=== PATIENT | female | born 2000 | race Asian ===

== ENCOUNTER 2021-04-11 12:33 | Observation (INO) | payer SELFPAY ==
[2021-04-11] VITALS (8 sets, daily range): BP systolic 86–110; BP diastolic 42–59
[~2021-04-11] VITALS: Ht 167.6 cm; Wt 68.2 kg
[2021-04-11 13:13] LABS: BASO # 0.1 x10^3/uL (0.0-0.2); BASO % 1 % (0-3); EOS # 0.2 x10^3/uL (0.0-0.7); EOS % 3 % (0-3); HEMATOCRIT 28.8 % (36.0-47.0); HEMOGLOBIN 9.4 g/dL (12.0-15.5); LYMPH # 1.4 x10^3/uL (1.0-4.8); LYMPH % 19 % (24-48); MEAN CORPUSCULAR HEMOGLOBIN 25 pg (25-35); MEAN CORPUSCULAR HGB CONC 33 g/dL (31-37); MEAN CORPUSCULAR VOLUME 76 fL (79-100); MONO # 0.4 x10^3/uL (0.0-1.1); MONO % 5 % (0-9); NEUT # 5.4 x10^3/uL (1.8-7.7); NEUT % 72 % (31-73); PLATELET COUNT 310 x10^3/uL (140-400); RED CELL DISTRIBUTION WIDTH 14.9 % (11.5-14.5); WHITE BLOOD COUNT 7.4 x10^3/uL (4.0-11.0)
[2021-04-11 13:26] LABS: CALCIUM 8.9 mg/dL (8.5-10.1); CREATININE 0.7 mg/dL (0.6-1.0); GFR 105.6; POTASSIUM 4.3 mmol/L (3.5-5.1)
[2021-04-11 13:32] LABS: ALBUMIN 2.5 g/dL (3.4-5.0); ALBUMIN/GLOBULIN RATIO 0.6 (1.0-1.7); TOTAL BILIRUBIN 0.2 mg/dL (0.2-1.0); TOTAL PROTEIN 6.7 g/dL (6.4-8.2)
--- NOTE | 2021-04-11 13:39 | PHYS DOC ---
Past Medical History Past Surgical History: No Surgical History Smoking Status: Never Smoker Alcohol Use: None General Adult EDM: Chief Complaint: VAGINAL BLEEDING HPI: HPI: Patient is a 20 year old female presents to the emergency department via EMS with chief complaint of miscarriage at home at noon today. Patient reports she is about 3 months with a last menstrual. On December 18, 2020. As had no care. Reports this is her third , has 2 children at home females 5 years and 3 years of age, denies any complications with previous pregnancies. Reports at approximately noon today she had a sudden onset of lower pelvic pain with a gush of fluids, states the baby came out, there was some bleeding that has stopped, patient states she called 911 for transport to the emergency department. Patient states the baby is still attached to the umbilical cord, patient states the baby is not moving. Patient denies any other physical complaints or physical concerns. Review of Systems: Review of Systems: 14 body systems of review of systems have been reviewed. See HPI for pertinent positives and negative responses, otherwise all other systems are negative, nonpertinent or noncontributory. Constitutional: Negative except as outlined in HPI above. Skin: Negative except as outlined in HPI above. Eyes: Negative except as outlined in HPI above. HENT: Negative except as outlined in HPI above. Respiratory: Negative except as outlined in HPI above. Cardiovascular: Negative except as outlined in HPI above. GI: Negative except as outlined in HPI above. : Negative except as outlined in HPI above. Musculoskeletal: Negative except as outlined in HPI above. Integument: Negative except as outlined in HPI above. Neurologic: Negative except as outlined in HPI above. Endocrine: Negative except as outlined in HPI above. Lymphatic: Negative except as outlined in HPI above. Psychiatric: Negative except as outlined in HPI above. Heart Score: C/O Chest Pain: No Risk Factors: Risk Factors: DM, Current or recent (<one month) smoker, HTN, HLP, family history of CAD, obesity. Risk Scores: Score 0 - 3: 2.5% MACE over next 6 weeks - Discharge Home Score 4 - 6: 20.3% MACE over next 6 weeks - Admit for Clinical Observation Score 7 - 10: 72.7% MACE over next 6 weeks - Early Invasive Strategies Allergies: Allergies: Allergies Coded Allergies Type Severity Reaction Last Updated Verified No Known Drug Allergies 04/11/21 No Physical Exam: PE: Constitutional: Well developed, well nourished, no acute distress, non-toxic appearance. 20-year-old female in no apparent distress. HENT: Normocephalic, atraumatic. Eyes: Conjunctiva normal, no discharge. Neck: Normal range of motion. Cardiovascular: Distal cap refill less than 2 seconds, no cyanosis appreciated. Lungs & Thorax: Patient is in no respiratory distress, no adventitious lung sounds appreciated. Abdomen: Bowel sounds normal, soft, no tenderness, no masses, no pulsatile masses. No bruising or skin discoloration of the abdomen. Skin: Warm, dry, no erythema, no rash. Back: No tenderness, no CVA tenderness. Extremities: No tenderness, no cyanosis, no clubbing, ROM intact, no edema. Neurologic: Alert and oriented X 3, normal motor function, normal sensory function, no focal deficits noted. Psychologic: Affect normal, judgement normal, mood normal. : External vaginal exam performed with female ED nurse at bedside, no active bleeding appreciated from vaginal opening, there is a nonviable fetus attached to umbilical cord, umbilical cord protruding from vaginal opening, the fetus is not moving. No placenta visually appreciated. Current Patient Data: Labs: Laboratory Tests Test 04/11/21 12:45 White Blood Count 7.4 x10^3/uL (4.0-11.0) Red Blood Count 3.80 x10^6/uL (3.50-5.40) Hemoglobin 9.4 g/dL (12.0-15.5) L Hematocrit 28.8 % (36.0-47.0) L Mean Corpuscular Volume 76 fL (79-100) L Mean Corpuscular Hemoglobin 25 pg (25-35) Mean Corpuscular Hemoglobin Concent 33 g/dL (31-37) Red Cell Distribution Width 14.9 % (11.5-14.5) H Platelet Count 310 x10^3/uL (140-400) Neutrophils (%) (Auto) 72 % (31-73) Lymphocytes (%) (Auto) 19 % (24-48) L Monocytes (%) (Auto) 5 % (0-9) Eosinophils (%) (Auto) 3 % (0-3) Basophils (%) (Auto) 1 % (0-3) Neutrophils # (Auto) 5.4 x10^3/uL (1.8-7.7) Lymphocytes # (Auto) 1.4 x10^3/uL (1.0-4.8) Monocytes # (Auto) 0.4 x10^3/uL (0.0-1.1) Eosinophils # (Auto) 0.2 x10^3/uL (0.0-0.7) Basophils # (Auto) 0.1 x10^3/uL (0.0-0.2) Sodium Level 135 mmol/L (136-145) L Potassium Level 4.3 mmol/L (3.5-5.1) Chloride Level 101 mmol/L (98-107) Carbon Dioxide Level 25 mmol/L (21-32) Anion Gap 9 (6-14) Blood Urea Nitrogen 9 mg/dL (7-20) Creatinine 0.7 mg/dL (0.6-1.0) Estimated GFR (Cockcroft-Gault) 105.6 BUN/Creatinine Ratio 13 (6-20) Glucose Level 77 mg/dL (70-99) Calcium Level 8.9 mg/dL (8.5-10.1) Total Bilirubin Pending Aspartate Amino Transferase (AST) Pending Alanine Aminotransferase (ALT) Pending Alkaline Phosphatase Pending Total Protein Pending Albumin Pending Albumin/Globulin Ratio Pending Laboratory Tests 04/11/21 12:45 Laboratory Tests 04/11/21 12:45 Vital Signs: Vital Signs Date Time Temp Pulse Resp B/P (MAP) Pulse Ox O2 Delivery O2 Flow Rate FiO2 04/11/21 12:35 98.2 75 18 116/58 100 Room Air 98.2 EKG: EKG: [] Radiology/Procedures: Radiology/Procedures: [] Course & Med Decision Making: Course & Med Decision Making Pertinent Labs and Imaging studies reviewed. (See chart for details) 20-year-old female, vital signs reviewed, presents to the emergency department complaining of a miscarriage at home. Physical examination reveals vaginal miscarriage, demise, no active bleeding appreciated. Will order CBC, CMP, beta-hCG, blood type for RhoGam consideration. Consult with [facility]OM[facility]S [facility] CO[facility] specialty. Spoke with [facility] specialist Dr. Jade who recommended the patient have pelvic ultrasound for retained products. management tech called stating radiologist would not approve ultrasound. Called and discussed this with Dr. Jade, Dr. Jade states he will come to see patient in ED soon. Dr. Jade at bedside to examine patient, Dr. Jade clamped umbilical cord, cut cord, fetus placed in formalin and sent to pathology by ED nurse. Dr. Jade plans for patient to wait a period time in ED to see if placenta will , states if not completed by 1600 to call him. Patient remains hemodynamically stable and pain-free at this time. At 1520 Dr. Jade examined patient, placenta has not delivered at this time, Dr. Jade states it would be back in 1 hour to reexamine the patient. Patient remains pain-free, hemodynamically stable at this time. At 1615, Dr. Jade reexamined patient, has decided to take to surgery for D&C. Discussed this with patient at bedside, patient is amenable to this plan. Will admit under observation to PHYSICIAN OFFICE NURSE specialist Dr. Jade for surgical D&C, Dr. Jade states his plan is to send patient home after D&C procedure. Dr. Jade has assumed patient care at this time. Waiting transport to surgery at this time, patient remains hemodynamically stable and pain-free, nontoxic in appearance. Dorothea Disclaimer: Dorothea Disclaimer: This electronic medical record was generated, in whole or in part, using a voice recognition dictation system. Departure Departure Impression: Primary Impression: Incomplete miscarriage Disposition: ADMITTED INPATIENT Admitting Physician: FERNANDOS (Admit observation to [facility] specialist Dr. Jdae for D&C procedure.) Condition: JACKIE FERRARI HOME OFFICE REPRESENTATIVE Apr 11, 2021 13:39
[2021-04-11 15:51] LABS: BILIRUBIN,URINE NEGATIVE (NEG); CLARITY,URINE CLOUDY; COLOR,URINE RED; NITRITE,URINE NEGATIVE (NEG); PH,URINE 7.5 (<5.0-8.0); PROTEIN,URINE 30 mg/dL (NEG-TRACE); UROBILINOGEN,URINE 0.2 mg/dL (0.2 mg/dL)
[2021-04-11 16:01] LABS: RBC,URINE TNTC /HPF (0-2)
[2021-04-11 16:02] LABS: BACTERIA,URINE 0 /HPF (0-FEW)
[2021-04-11] MEDS ORDERED: ALBUMIN HUMAN 5% 500 ML IV ONE (16:13)
[2021-04-11] MEDS ORDERED: SUCCINYLCHOLINE 200 MG/10 ML VIAL. ONE (16:15)
[2021-04-11] MEDS ORDERED: ROCURONIUM 50 MG/5 ML VIAL. ONE (16:15)
[2021-04-11] MEDS ORDERED: LIDOCAINE 1% PF 5 ML VIAL. ONE (16:15)
[2021-04-11] MEDS ORDERED: PROPOFOL 10 MG/ML (20ML) VIAL. IV ONE (16:15)
[2021-04-11] MEDS ORDERED: MIDAZOLAM HCL/PF 2 MG/2 ML VIAL. ONE (16:16)
[2021-04-11] MEDS ORDERED: fentaNYL PF VIAL 100 MCG/2 ML VIAL ONE (16:16)
--- NOTE | 2021-04-11 16:20 | PDOC1 ---
REWORK OPERATOR H&P Date of Admission: Date of Admission: History of Present Illness: The pt is a 20y who presented to the ER with loss. The pt began to have abd pain last night. The pain improved but she woke the pain was worse. The pt ended up delivering in route to the ER. She had an LMP of 12/18/20 (09/23/21, 16.2wga). The placenta remained attached for the next 4 hours. Traction was placed on the cord and the cord avulsed. PMH: Denies PSH: Denies Meds: None All: NKDA OBHx: TSVD x 2 SH: no tob, no EtOH FH: noncontributory Allergies: Coded Allergies: No Known Drug Allergies (Unverified , 04/11/21) Physical Exam: Vital Signs: Vital Signs Date Time Temp Pulse Resp B/P (MAP) Pulse Ox O2 Delivery O2 Flow Rate FiO2 04/11/21 12:35 98.2 75 18 116/58 100 Room Air 98.2 PE: GENERAL: No apparent distress. Alert and oriented. HEENT: Head normocephalic, atraumatic. NECK: Supple LUNGS: Clear to auscultation. HEART: RRR, S1, S2 present, pulses intact ABDOMEN: Soft, positive bowel sounds. EXTREMITIES: No cyanosis or edema. NEUROLOGIC: Normal speech, normal tone PSYCHIATRIC: Normal affect, normal mood. SKIN: No ulceration. Labs: Laboratory Tests Test 04/11/21 12:45 04/11/21 15:45 White Blood Count 7.4 x10^3/uL (4.0-11.0) Red Blood Count 3.80 x10^6/uL (3.50-5.40) Hemoglobin 9.4 g/dL (12.0-15.5) L Hematocrit 28.8 % (36.0-47.0) L Mean Corpuscular Volume 76 fL (79-100) L Mean Corpuscular Hemoglobin 25 pg (25-35) Mean Corpuscular Hemoglobin Concent 33 g/dL (31-37) Red Cell Distribution Width 14.9 % (11.5-14.5) H Platelet Count 310 x10^3/uL (140-400) Neutrophils (%) (Auto) 72 % (31-73) Lymphocytes (%) (Auto) 19 % (24-48) L Monocytes (%) (Auto) 5 % (0-9) Eosinophils (%) (Auto) 3 % (0-3) Basophils (%) (Auto) 1 % (0-3) Neutrophils # (Auto) 5.4 x10^3/uL (1.8-7.7) Lymphocytes # (Auto) 1.4 x10^3/uL (1.0-4.8) Monocytes # (Auto) 0.4 x10^3/uL (0.0-1.1) Eosinophils # (Auto) 0.2 x10^3/uL (0.0-0.7) Basophils # (Auto) 0.1 x10^3/uL (0.0-0.2) Maternal Serum HCG Beta Subunit 37425 mIU/mL (0-5) H Sodium Level 135 mmol/L (136-145) L Potassium Level 4.3 mmol/L (3.5-5.1) Chloride Level 101 mmol/L (98-107) Carbon Dioxide Level 25 mmol/L (21-32) Anion Gap 9 (6-14) Blood Urea Nitrogen 9 mg/dL (7-20) Creatinine 0.7 mg/dL (0.6-1.0) Estimated GFR (Cockcroft-Gault) 105.6 BUN/Creatinine Ratio 13 (6-20) Glucose Level 77 mg/dL (70-99) Calcium Level 8.9 mg/dL (8.5-10.1) Total Bilirubin 0.2 mg/dL (0.2-1.0) Aspartate Amino Transferase (AST) 23 U/L (15-37) Alanine Aminotransferase (ALT) 17 U/L (14-59) Alkaline Phosphatase 96 U/L (46-116) Total Protein 6.7 g/dL (6.4-8.2) Albumin 2.5 g/dL (3.4-5.0) L Albumin/Globulin Ratio 0.6 (1.0-1.7) L Urine Collection Type Unknown Urine Color Red Urine Clarity Cloudy Urine pH 7.5 (<5.0-8.0) Urine Specific [place] 1.010 (1.000-1.030) Urine Protein 30 mg/dL (NEG-TRACE) Urine Glucose (UA) Negative mg/dL (NEG) Urine Ketones (Stick) Negative mg/dL (NEG) Urine Blood Large (NEG) Urine Nitrite Negative (NEG) Urine Bilirubin Negative (NEG) Urine Urobilinogen Dipstick 0.2 mg/dL (0.2 mg/dL) Urine Leukocyte Esterase Moderate (NEG) Urine RBC Tntc /HPF (0-2) Urine WBC 5-10 /HPF (0-4) Urine Squamous Epithelial Cells Few /LPF Urine Bacteria 0 /HPF (0-FEW) Laboratory Tests 04/11/21 12:45 Laboratory Tests 04/11/21 12:45 Laboratory Tests 04/11/21 12:45 Assessment & Plan: A/P 20y with retained placenta Retained placenta will take to the OR for manual extraction JACKIE SHAY MD Apr 11, 2021 16:20
[2021-04-11] MEDS ORDERED: ONDANSETRON PF 4 MG/2 ML VIAL. ONE (16:42)
[2021-04-11] MEDS ORDERED: IV NORMAL SALINE 1000ML BAG 1,000 ML IV ONE ×2 (16:45→17:15)
[2021-04-11] MEDS ORDERED: ONDANSETRON PF 4 MG/2 ML VIAL. IVP ONE (16:45)
[2021-04-11] MEDS ORDERED: ONDANSETRON PF 4 MG/2 ML VIAL. IVP PRN (17:15)
[2021-04-11] MEDS ORDERED: PROCHLORPERAZINE 10 MG/2 ML VIAL. IVP PRN (17:45)
[2021-04-11] MEDS ORDERED: HYDROmorphone 2 MG/ML VIAL IVP PRN (17:45)
[2021-04-11] MEDS ORDERED: IV RINGERS,LACTATED 1000ML 1,000 ML IV SCH (17:45)
[2021-04-11] MEDS ORDERED: MORPHINE SULFATE 2 MG/ML INJ. IVP PRN (17:45)
[2021-04-11] MEDS ORDERED: fentaNYL PF VIAL 100 MCG/2 ML VIAL IVP PRN ×2 (17:45)
[2021-04-11 18:01] LABS: HEMATOCRIT 24.4 % (36.0-47.0)
[2021-04-11] MEDS ORDERED: SEVOFLURANE 31 TO 60 MINUTES. IH ONE (19:21)
[2021-04-11] MEDS ORDERED: SEVOFLURANE 16 TO 30 MINUTES. IH ONE (19:21)
[2021-04-11] MEDS ORDERED: PHENYLEPHRINE in 0.9% NACL PF 1 MG/10 ML SYRINGE. IV ONE (19:22)
--- NOTE | 2021-04-11 19:41 | PDOC4 ---
OPERATIVE NOTE: PreOp Dx: 1.) s/p 16wk , 2.) Retained placenta, 3.) VB PostOp Dx: same Procedure: Extraction of placenta with Suction D&C Surgeon: Odalys Shay Anesthesia: GETA EBL: 500 cc Fluids: 500 cc UOP: 250 cc Specimen: POC Complications: None JACKIE SHAY MD Apr 11, 2021 19:41
[2021-04-11 19:47] LABS: BASO # 0.1 x10^3/uL (0.0-0.2); BASO % 0 % (0-3); EOS # 0.1 x10^3/uL (0.0-0.7); EOS % 1 % (0-3); LYMPH # 2.1 x10^3/uL (1.0-4.8); LYMPH % 13 % (24-48); MEAN CORPUSCULAR HEMOGLOBIN 24 pg (25-35); MEAN CORPUSCULAR HGB CONC 32 g/dL (31-37); MEAN CORPUSCULAR VOLUME 77 fL (79-100); MONO # 0.5 x10^3/uL (0.0-1.1); MONO % 3 % (0-9); NEUT # 12.8 x10^3/uL (1.8-7.7); NEUT % 82 % (31-73); PLATELET COUNT 263 x10^3/uL (140-400); RED BLOOD COUNT 2.22 x10^6/uL (3.50-5.40); RED CELL DISTRIBUTION WIDTH 14.9 % (11.5-14.5); WHITE BLOOD COUNT 15.6 x10^3/uL (4.0-11.0)
[2021-04-11 19:49] LABS: HEMATOCRIT 17.1 % (36.0-47.0); HEMOGLOBIN 5.4 g/dL (12.0-15.5)
[2021-04-11] MEDS ORDERED: DEXTROSE 50% 25 GM / 50ML DISP.SYRIN. IV PRN (20:00)
[2021-04-11] MEDS ORDERED: NALOXONE 0.4 MG/ML VIAL. IV PRN (20:00)
[2021-04-11] MEDS ORDERED: 0.9 % SODIUM CHLORIDE 10 ML DISP.SYRIN. IV PRN (20:00)
[2021-04-11] MEDS ORDERED: IBUPROFEN 200 MG TABLET. PO PRN (20:00)
[2021-04-11] MEDS ORDERED: IV NORMAL SALINE 1000ML BAG 1,000 ML IV SCH (20:00)
[2021-04-11] MEDS ORDERED: diphenhydrAMINE 50 MG/ML VIAL IV PRN (20:00)
[2021-04-11] MEDS ORDERED: diphenhydrAMINE HCL 25 MG CAPSULE PO PRN (20:00)
[2021-04-11] MEDS ORDERED: MORPHINE SULFATE 2 MG/ML INJ. IV PRN ×2 (20:00)
[2021-04-11] MEDS ORDERED: oxyCODONE/APAP 5/325 1 TAB TABLET PO PRN ×2 (20:00)
[2021-04-11] MEDS ORDERED: KETOROLAC 15 MG/ML VIAL. IV PRN (20:00)
[2021-04-11] MEDS: IV DEXTROSE 5 %-0.45 % NACL 1,000 ML IV SCH (20:00)
[2021-04-11 20:24] LABS: % BANDS 1 % (0-9); % EOS 1 % (0-5); % MONOS 2 % (0-10); HYPOCHROMIA SLIGHT; MICROCYTOSIS SLIGHT; PLT ESTIMATE ADEQUATE (ADEQUATE)
[2021-04-11 20:25] LABS: % LYMPHS 10 % (24-48); % SEGS 86 % (35-66)
--- NOTE | 2021-04-11 20:54 | OP ---
DATE OF SURGERY: 04/11/2021 PREOPERATIVE DIAGNOSES: 1. Status post a 16-week spontaneous vaginal delivery in the ER. 2. Retained placenta. 3. Vaginal bleeding. POSTOPERATIVE DIAGNOSES: 1. Status post a 16-week spontaneous vaginal delivery in the ER. 2. Retained placenta. 3. Vaginal bleeding. PROCEDURE: Extraction of placenta with suction D and C. SURGEON: Abhijeet Jade MD TYPE OF ANESTHESIA: General endotracheal intubation. ESTIMATED BLOOD LOSS: 500 mL. FLUIDS: 500 mL. URINE OUTPUT: 250 mL. SPECIMENS: Products of conception. COMPLICATIONS: None. INDICATIONS: The patient is a 20-year-old 3, para 2-0-0-2, who presented to the ER after delivering a 16-week . The patient reported having pain last night and then when she woke, the pain was worse and the patient ended up delivering en route to the ER. The placenta remained intact for 4 hours, but was not able to be removed. Traction on the cord at bedside to deliver the placenta resulted in avulsion. The patient was placed on the surgery schedule. While awaiting her start time the patient passed on and fell to the floor. The patient's bleeding began to increase along with some tachycardia and hypotension, so the patient was taken to the operating room for that said procedure. DESCRIPTION OF PROCEDURE: The patient was taken to the operating room where LMA was placed without difficulty. The patient was prepped and draped in normal sterile fashion. A posterior weighted speculum was placed in the patient's vagina and a right angle retractor was used to visualize the anterior lip of the cervix, which was grasped with a single tooth tenaculum. A bandage curette was then placed into the cervix all the way to the fundus to remove the products of conception. The amount of tissue being delivered was not being expelled in a quick enough fashion, so it was felt that a suction curetting would be more efficient. A 12 curved suction curette was then placed and advanced to the uterine fundus and activated. The curette was rotated and all products of conception were cleared with approximately 4 passes. The bandage curette was then used again with more tissue being presented and ultimately was able to bring the intact placenta to the cervical os, which was grasped with a ring forceps and delivered. At that point, good hemostasis was noted, so the procedure was terminated. The tenaculum was then removed with minimal bleeding at the tenaculum site. Good hemostasis was noted. The patient was then taken to the recovery room in stable condition. JOCELYN/AVRIL/HEIDE DR: Epharim TID: [id number] MTDD
[2021-04-11] MEDS: DOCUSATE SODIUM 100 MG CAPSULE. PO SCH (21:00)
[2021-04-12] VITALS (8 sets, daily range): BP systolic 90–108; BP diastolic 38–61
--- NOTE | 2021-04-12 02:32 | NUR ---
Assumed care of the patient from the PACU 04/11 while being transfused with 1 unit of PRBC. Another unit has just been completed. The patient has tolerated both units of PRBC without any complications. She has been up alert and oriented. Ate a small snack drank milk and water and talked to family via phone. She is currently sleeping but easily to arouse with calling her name lightly. The patient denies any pain at this time. Call martin is in reach. Will continue to monitor closely. No acute distress noted at this time.
[2021-04-12] MEDS: IV DEXTROSE 5 %-0.45 % NACL 1,000 ML IV SCH (06:00)
[2021-04-12 06:39] LABS: BASO % 0 % (0-3); EOS % 0 % (0-3); HEMATOCRIT 21.4 % (36.0-47.0); HEMOGLOBIN 7.4 g/dL (12.0-15.5); LYMPH # 1.4 x10^3/uL (1.0-4.8); LYMPH % 15 % (24-48); MEAN CORPUSCULAR HEMOGLOBIN 28 pg (25-35); MEAN CORPUSCULAR HGB CONC 35 g/dL (31-37); MEAN CORPUSCULAR VOLUME 81 fL (79-100); MONO # 0.3 x10^3/uL (0.0-1.1); MONO % 3 % (0-9); NEUT # 7.5 x10^3/uL (1.8-7.7); NEUT % 81 % (31-73); PLATELET COUNT 207 x10^3/uL (140-400); RED BLOOD COUNT 2.64 x10^6/uL (3.50-5.40); RED CELL DISTRIBUTION WIDTH 16.5 % (11.5-14.5); WHITE BLOOD COUNT 9.2 x10^3/uL (4.0-11.0)
[2021-04-12] MEDS: DOCUSATE SODIUM 100 MG CAPSULE. PO SCH (09:00)
--- NOTE | 2021-04-12 09:49 | PDOC ---
DESIGN PRINTING MACHINE SETTER PROGRESS NOTE Date of Service: DATE: 04/12/21 TIME: 09:48 Subjective: Pt with good pain control. Jose PO. Voiding. Denies dizziness or lightheadedness. Minimal VB Objective: Vital Signs: Vital Signs Date Time Temp Pulse Resp B/P (MAP) Pulse Ox O2 Delivery O2 Flow Rate FiO2 04/11/21 12:35 98.2 75 18 116/58 100 Room Air 98.2 04/11/21 17:37 4.0 Vital Signs Date Time Temp Pulse Resp B/P (MAP) Pulse Ox O2 Delivery O2 Flow Rate FiO2 04/12/21 07:05 98.8 62 16 108/56 (73) 100 Room Air 98.8 04/12/21 04:00 2.0 Labs: Laboratory Tests Test 04/11/21 12:45 04/11/21 13:35 04/11/21 15:45 04/11/21 17:40 White Blood Count 7.4 x10^3/uL (4.0-11.0) Red Blood Count 3.80 x10^6/uL (3.50-5.40) Hemoglobin 9.4 g/dL (12.0-15.5) L 8.0 g/dL (12.0-15.5) L Hematocrit 28.8 % (36.0-47.0) L 24.4 % (36.0-47.0) L Mean Corpuscular Volume 76 fL (79-100) L Mean Corpuscular Hemoglobin 25 pg (25-35) Mean Corpuscular Hemoglobin Concent 33 g/dL (31-37) 33 g/dL (31-37) Red Cell Distribution Width 14.9 % (11.5-14.5) H Platelet Count 310 x10^3/uL (140-400) Neutrophils (%) (Auto) 72 % (31-73) Lymphocytes (%) (Auto) 19 % (24-48) L Monocytes (%) (Auto) 5 % (0-9) Eosinophils (%) (Auto) 3 % (0-3) Basophils (%) (Auto) 1 % (0-3) Neutrophils # (Auto) 5.4 x10^3/uL (1.8-7.7) Lymphocytes # (Auto) 1.4 x10^3/uL (1.0-4.8) Monocytes # (Auto) 0.4 x10^3/uL (0.0-1.1) Eosinophils # (Auto) 0.2 x10^3/uL (0.0-0.7) Basophils # (Auto) 0.1 x10^3/uL (0.0-0.2) Maternal Serum HCG Beta Subunit 01697 mIU/mL (0-5) H Sodium Level 135 mmol/L (136-145) L Potassium Level 4.3 mmol/L (3.5-5.1) Chloride Level 101 mmol/L (98-107) Carbon Dioxide Level 25 mmol/L (21-32) Anion Gap 9 (6-14) Blood Urea Nitrogen 9 mg/dL (7-20) Creatinine 0.7 mg/dL (0.6-1.0) Estimated GFR (Cockcroft-Gault) 105.6 BUN/Creatinine Ratio 13 (6-20) Glucose Level 77 mg/dL (70-99) Calcium Level 8.9 mg/dL (8.5-10.1) Total Bilirubin 0.2 mg/dL (0.2-1.0) Aspartate Amino Transferase (AST) 23 U/L (15-37) Alanine Aminotransferase (ALT) 17 U/L (14-59) Alkaline Phosphatase 96 U/L (46-116) Total Protein 6.7 g/dL (6.4-8.2) Albumin 2.5 g/dL (3.4-5.0) L Albumin/Globulin Ratio 0.6 (1.0-1.7) L SARS-CoV-2 RNA (JESIKA) Negative (Negative) SARS-CoV-2 Antigen (Rapid) Negative (NEGATIVE) Urine Collection Type Unknown Urine Color Red Urine Clarity Cloudy Urine pH 7.5 (<5.0-8.0) Urine Specific [place] 1.010 (1.000-1.030) Urine Protein 30 mg/dL (NEG-TRACE) Urine Glucose (UA) Negative mg/dL (NEG) Urine Ketones (Stick) Negative mg/dL (NEG) Urine Blood Large (NEG) Urine Nitrite Negative (NEG) Urine Bilirubin Negative (NEG) Urine Urobilinogen Dipstick 0.2 mg/dL (0.2 mg/dL) Urine Leukocyte Esterase Moderate (NEG) Urine RBC Tntc /HPF (0-2) Urine WBC 5-10 /HPF (0-4) Urine Squamous Epithelial Cells Few /LPF Urine Bacteria 0 /HPF (0-FEW) Test 04/11/21 19:40 04/12/21 06:25 White Blood Count 15.6 x10^3/uL (4.0-11.0) H 9.2 x10^3/uL (4.0-11.0) Red Blood Count 2.22 x10^6/uL (3.50-5.40) L 2.64 x10^6/uL (3.50-5.40) L Hemoglobin 5.4 g/dL (12.0-15.5) *L 7.4 g/dL (12.0-15.5) #L Hematocrit 17.1 % (36.0-47.0) *L 21.4 % (36.0-47.0) L Mean Corpuscular Volume 77 fL (79-100) L 81 fL (79-100) # Mean Corpuscular Hemoglobin 24 pg (25-35) L 28 pg (25-35) Mean Corpuscular Hemoglobin Concent 32 g/dL (31-37) 35 g/dL (31-37) Red Cell Distribution Width 14.9 % (11.5-14.5) H 16.5 % (11.5-14.5) H Platelet Count 263 x10^3/uL (140-400) 207 x10^3/uL (140-400) Neutrophils (%) (Auto) 82 % (31-73) H 81 % (31-73) H Lymphocytes (%) (Auto) 13 % (24-48) L 15 % (24-48) L Monocytes (%) (Auto) 3 % (0-9) 3 % (0-9) Eosinophils (%) (Auto) 1 % (0-3) 0 % (0-3) Basophils (%) (Auto) 0 % (0-3) 0 % (0-3) Neutrophils # (Auto) 12.8 x10^3/uL (1.8-7.7) H 7.5 x10^3/uL (1.8-7.7) Lymphocytes # (Auto) 2.1 x10^3/uL (1.0-4.8) 1.4 x10^3/uL (1.0-4.8) Monocytes # (Auto) 0.5 x10^3/uL (0.0-1.1) 0.3 x10^3/uL (0.0-1.1) Eosinophils # (Auto) 0.1 x10^3/uL (0.0-0.7) 0.0 x10^3/uL (0.0-0.7) Basophils # (Auto) 0.1 x10^3/uL (0.0-0.2) 0.0 x10^3/uL (0.0-0.2) Segmented Neutrophils % 86 % (35-66) H Band Neutrophils % 1 % (0-9) Lymphocytes % 10 % (24-48) L Monocytes % 2 % (0-10) Eosinophils % 1 % (0-5) Platelet Estimate Adequate (ADEQUATE) Hypochromasia Slight Microcytosis Slight Laboratory Tests 04/11/21 12:45 04/11/21 17:40 04/11/21 19:40 04/12/21 06:25 Laboratory Tests 04/11/21 12:45 Laboratory Tests 04/11/21 12:45 04/12/21 06:25 Physical Exam: GENERAL: No apparent distress. Alert and oriented. HEENT: Head normocephalic, atraumatic. NECK: Supple LUNGS: Clear to auscultation. HEART: RRR, S1, S2 present, pulses intact ABDOMEN: Soft, positive bowel sounds. EXTREMITIES: No cyanosis or edema. NEUROLOGIC: Normal speech, normal tone PSYCHIATRIC: Normal affect, normal mood. SKIN: No ulceration. Assessment & Plan: A/P 20y POD #1 s/p extraction of placenta with Suction D&C 1.) PO doing well 2.) Anemia Hgb 9.4 -> 8.0 -> 5.4, given 2U pRBC -> 7.4 3.) VB resolved s/p procedure 4.) s/p 16wk 5.) D/c home JACKIE SHAY MD Apr 12, 2021 09:49
[2021-04-12] MEDS ORDERED: OXYC1TAB15 PO ×2 (09:54→09:58)
--- NOTE | 2021-04-13 20:22 | PATHOLOGY ---
[facility] Accession Number: [id number] . 01 Material submitted: . placenta - RETAINED PLACENTA . 01 Clinical history: . RETAINED PLACENTA MANUAL EXTRACTION OF RETAINED PLACENTA POSS. D/C INCOMPLETE MISCARRIAGE . 02 Diagnosis: Retained placenta manual extraction: - Segment of immature placenta showing vascular malperfusion, villous edema, acute chorioamnionitis, and villous chorangiosis. (JPM/db; 04/13/2021) LBQ 04/13/2021 1437 Local . 02 Electronically signed: . Mario Garay MD, Pathologist NPI- [id number] . 01 Gross description: . The specimen is received in formalin, labeled "Yasemin Monzon, retained placenta". Received is a 135 g aggregate of pink-alexander tissue admixed with blood coagulum and a segment of placental tissue measuring 14.2 x 8.6 x 3.9 cm in aggregate dimensions. The surface is dusky [place]ue-alexander and intact. membranes are not grossly distinct. The umbilical cord is absent. Sectioning reveals pink-alexander to red-brown, hemorrhagic cut surfaces. The specimen is submitted representatively in cassettes A1 through A3. (CAA; 04/12/2021) QAC/QAC 04/13/2021 1433 Local . 02 Pathologist provided ICD-10: O73.0 . 02 CPT . 026589 Specimen Comment: A courtesy copy of this report has been sent to [phone] Specimen Comment: Report sent to / DR ELLIOTT Performed at: [address], [place], [place] [id number] MD Néstor Prescott MD Phone: [phone] Performed at: 02 [facility] [address] [place], [place] [id number] MD Mario Garay MD Phone: [phone]
--- NOTE | 2021-04-18 09:08 | PATHOLOGY ---
[facility] Accession Number: [id number] . 01 Material submitted: . product of conception - POC SPONTANEOUSLY PASSED . 01 Diagnosis: Products of conception "products of conception spontaneously passed": Gross diagnosis only: 219 gram fetus with the following measurements. Foot length: 3.0 cm [place]-rump: 16.7 cm [place]-heel: 22.1 cm Head circumference: 15.0 cm Chest circumference: 12.5 cm Abdomen circumference: 11.6 cm Inner [place] distance: 1.4 cm Outer [place] distance: 3.2 cm Umbilical cord: 9.0 cm long by 0.8 cm in diameter . (SHA:[facility]; 04/18/2021) QTP 04/18/2021 0735 Local . 01 Electronically signed: . Néstor Prescott MD, Pathologist NPI- [id number] . 01 Gross description: . The specimen is received in formalin, labeled "Yasemin Monzon" with no designation on the specimen container. The specimen is labeled per the requisition "POC spontaneously passed". Received is a 219 g fetus with the following measurements: . Foot length: 3.0 cm [place]-rump: 16.7 cm [place]-heel: 22.1 cm Head circumference: 15.0 cm Chest circumference: 12.5 cm Abdomen circumference: 11.6 cm Inner [place] distance: 1.4 cm Outer [place] distance: 3.2 cm Umbilical cord: 9.0 cm long by 0.8 cm in diameter . . Both hands display 5 fingers. The right hand displays an abnormal separation between the second and third digits. Both feet display 5 toes. The feet appear abnormally rotated and the toes on the right foot are compressed. The ears are grossly unremarkable and in line with the eyes. The mouth and anus are probe patent. Both knees and elbows are knobby in appearance. The epidermis is brown with skin sloughing on the chest, abdomen, face, and posterior cranium. A defect in the left lateral wall of the abdomen is identified displaying loops of small intestine, liver, gallbladder, and kidney. The hard palate within the mouth is intact. The sex appears grossly ambiguous. Gross photographs are taken. Gross only. (MRF; 04/12/2021) MFE/MFE 04/12/2021 1450 Local . 01 Pathologist provided ICD-10: O03.4 . 01 CPT . 806820 Specimen Comment: A courtesy copy of this report has been sent to [phone] Specimen Comment: Report sent to Performed at: [address], [place], [place] [id number] MD Néstor Prescott MD Phone: [phone]
== END 2021-04-12 15:00 | disposition home or self-care (01) ==
LOC: ER 12:33 → 3 NORTH 16:15
PROVIDERS: ADMIT Obstetrics & Gynecology; ATTEND Obstetrics & Gynecology
DX: O72.0 Third-stage hemorrhage (principal); O03.4 Incomplete spontaneous abortion without complication; Z20.822 Contact with and (suspected) exposure to COVID-19; Z79.899 Other long term (current) drug therapy; Z3A.16 16 weeks gestation of pregnancy; W18.30XA Fall on same level, unspecified, initial encounter; Y92.89 Other specified places as the place of occurrence of the external cause; Y93.89 Activity, other specified; Y99.8 Other external cause status
CPT/HCPCS: 36415; 36430; 59812; 80053; 81001; 84702; 85007; 85014; 85018; 85025; 86850; 86900; 86901; 86920; 87086; 87426; 96361; 96374; 99284; A4930; G0378; J0330; J2250; J2370; J2405; J2704; J3490; J7030; J7120; P9016; P9045; U0003; U0005; A4223; A4322; G0379; J3010